=== PATIENT | female | born 1965 | race Caucasian/White ===

== ENCOUNTER → 2024-12-12 | Outpatient (CLI) | payer MEDICAID, SELFPAY ==
--- NOTE | 2024-12-12 10:30 | XR_ITS ---
Examination: Abdomen sonogram, complete Date and time of exam: December 12, 2024 1026 hrs. Indications: Right upper abdominal pain beginning 4 years ago. Technique: Multiple real-time grayscale transabdominal sonographic images of the abdomen have been obtained. Findings: Gallstones, the largest stone 26 mm Gallbladder wall 0.6 cm with edema Common bile duct 0.5 cm Pancreatic head 3.0 cm Liver 21.4 cm irregular contour fatty infiltration Normal hepatopedal portal venous flow Patent IVC Right kidney 13.4 cm cortex 1.5 cm Left kidney 13.2 cm cortex 2.0 cm 13 mm, 8mm left renal cyst Minimal left hydronephrosis Splenomegaly 15.1 cm Impression: Findings consistent with acute calculus cholecystitis, consider HIDA scan or MRCP follow-up Cirrhosis, significant hepatomegaly, fatty infiltration Prominent splenomegaly Minimal left hydronephrosis, consider CT scan abdomen pelvis without contrast follow-up to assess etiology of the hydronephrosis
== END | disposition home or self-care (01) ==
LOC: CDIM 10:15
PROVIDERS: PCP Nurse Practitioner Family; Referring Provider Internal Medicine; Visit Provider Internal Medicine
DX: K76.0 Fatty (change of) liver, not elsewhere classified (principal); K74.60 Unspecified cirrhosis of liver; N13.30 Unspecified hydronephrosis
CPT/HCPCS: 76700

== ENCOUNTER → 2025-03-01 | Outpatient (CLI) | payer MEDICAID, SELFPAY ==
--- NOTE | 2025-03-01 12:00 | XR_ITS ---
Examination: CT abdomen without intravenous contrast. Coronal 2-D reconstructions. Sagittal 2-D reconstructions. Date and time of exam:March 01, 2025 1207 hours Comparison June 09, 2021 INDICATIONS: Diagnosis of the negative fatty liver CTDI: vol (mGy): 12.4 DLP: (mGycm): 416 Technique: Axial images of the abdomen have been obtained, 3 mm slice thickness, without intravenous contrast 2-D sagittal coronal reconstructions Low dose protocols were performed. One or more of the following dose reduction techniques were used; automated exposure control, adjustment of the mA and/or KV according to patient size, use of iterative reconstruction technique. Findings: Hepatomegaly 21 cm with diffuse fatty infiltration Splenomegaly 14 cm Cholelithiasis, no pericholecystic inflammatory change No pancreatic or adrenal mass No renal or ureteral calculi, no hydronephrosis Aorta normal size No bowel obstruction Normal appendix IMPRESSION: Hepatosplenomegaly Fatty liver Cholelithiasis
== END | disposition home or self-care (01) ==
LOC: CCTX 11:38
PROVIDERS: PCP Nurse Practitioner Family; Referring Provider Nurse Practitioner Family; Visit Provider Nurse Practitioner Family
DX: K76.0 Fatty (change of) liver, not elsewhere classified (principal); K80.20 Calculus of gallbladder without cholecystitis without obstruction
CPT/HCPCS: 74150